=== PATIENT | female | born 1975 | race Two or more races ===

== ENCOUNTER 2021-05-31 19:21 | Emergency (ER) | payer SELFPAY ==
[~2021-05-31] VITALS: Ht 162.6 cm; Wt 68.0 kg
[2021-05-31 20:40] LABS: BASOPHILS % 0.2 % (0.0-2.0); EOSINOPHILS % 0.6 % (0.0-5.0); HEMOGLOBIN. 11.6 g/dL (12.0-16.0); LYMPHOCYTES % 9.4 % (20.0-50.0); MEAN CORPUSCULAR HEMOGLOBIN 27.3 pg (28.0-32.0); MEAN CORPUSCULAR VOLUME 80.4 fL (81.0-99.0); MEAN PLATELET VOLUME 7.7 fl (7.4-10.4); MONOCYTES % 5.5 % (2.0-8.0); NEUTROPHILS % 84.3 % (40.0-76.0); PLATELET 238 x1000/uL (130-400); RED BLOOD CELL COUNT 4.23 mill/uL (4.2-5.4); RED CELL DISTRIBUTION WIDTH 15.1 % (11.6-14.6)
[2021-05-31 20:46] LABS: CHLORIDE 107 mEq/L (98-107)
[2021-05-31] MEDS ORDERED: POTASSIUM CHLORIDE 20MEQ TABLET SR PO SCH (22:00)
[2021-05-31 22:13] VITALS: BP 135/79
== END 2021-05-31 22:15 | disposition home or self-care (01) ==
LOC: ER 19:21
DX: R55 Syncope and collapse (principal); Z86.39 Personal history of other endocrine, nutritional and metabolic disease; Z98.890 Other specified postprocedural states
CPT/HCPCS: 36415; 71045; 80053; 83880; 84484; 85025; 93005; 99285